=== PATIENT | female | born 1970 | race Caucasian/White ===

== ENCOUNTER 2019-09-06 09:10 | Outpatient (CLI) | payer BC, SELFPAY ==
--- NOTE | ~2019-09-06 | MM_ITS ---
EXAMINATION: MM screening [facility] BI w jan HISTORY: Screening mammogram TECHNIQUE: Craniocaudal and mediolateral oblique 3-D tomosynthesis images were obtained and synthetic 2-D images were generated. CAD analysis was submitted and interpreted. COMPARISON: 09/03/2018, 08/31/2017, 03/30/2016 BREAST PARENCHYMAL COMPOSITION: The breasts are extremely dense, which lowers the sensitivity of mamm ography. FINDINGS: There is no evidence of suspicious mass, calcification, or architectural distortion to sugg est malignancy in either breast. There has been no suspicious interval change. IMPRESSION: 1. No mammographic evidence of malignancy. 2. Recommend routine screening mammography in one year. BI-RADS Category 1: Negative Reviewed, dictated and finalized at location A.
== END 2019-09-06 09:11 | disposition home or self-care (01) ==
LOC: ANHIMG 09:12
PROVIDERS: PCP Family Medicine; Visit Provider Obstetrics & Gynecology
DX: Z12.31 Encounter for screening mammogram for malignant neoplasm of breast (principal)
CPT/HCPCS: 77063; 77067

== ENCOUNTER 2020-10-01 07:26 | Outpatient (CLI) | payer BC, SELFPAY ==
--- NOTE | ~2020-10-01 | MM_ITS ---
EXAMINATION: MM screening [facility] BI w jan HISTORY: Screening TECHNIQUE: Craniocaudal and mediolateral oblique 3-D tomosynthesis images were obtained and synthetic 2-D images were generated. CAD analysis was submitted and interpreted. COMPARISON: Comparison to multiple prior studies sequentially, with oldest reviewed study dated 11/27. BREAST PARENCHYMAL COMPOSITION: The breasts are extremely dense, which lowers the sensitivity of mamm ography FINDINGS: There is no evidence of suspicious mass, calcification, or architectural distortion to sugg est malignancy in either breast. There has been no suspicious interval change. IMPRESSION: 1. No mammographic evidence of malignancy. 2. Recommend routine screening mammography in one year. BI-RADS Category 1: Negative Reviewed, dictated and finalized at location A.
== END 2020-10-01 07:27 | disposition home or self-care (01) ==
LOC: ANHIMG 07:29
PROVIDERS: PCP Family Medicine; Visit Provider Obstetrics & Gynecology
DX: Z12.31 Encounter for screening mammogram for malignant neoplasm of breast (principal)
CPT/HCPCS: 77063; 77067

== ENCOUNTER 2022-03-07 14:47 | Outpatient (CLI) | payer BC, SELFPAY ==
--- NOTE | ~2022-03-07 | MM_ITS ---
EXAMINATION: MM screening [facility] BI w jan HISTORY: Screening mammogram TECHNIQUE: Craniocaudal and mediolateral oblique 3-D tomosynthesis images were obtained and synthetic 2-D images were generated. CAD analysis was submitted and interpreted. COMPARISON: 10/01/2020, 09/06/2019, 09/03/2018 bilateral screening mammogram examinations BREAST PARENCHYMAL COMPOSITION: The breasts are extremely dense, which lowers the sensitivity of mamm ography. FINDINGS: There are occasional benign calcifications of the breasts. There is no evidence of suspicio us mass, calcification, or architectural distortion to suggest malignancy in either breast. There has been no suspicious interval change. IMPRESSION: 1. No mammographic evidence of malignancy. 2. Recommend routine screening mammography in one year. BI-RADS Category 1: Negative Reviewed, dictated and finalized at location A. OR RD ENGINEER
== END 2022-03-07 14:48 | disposition home or self-care (01) ==
LOC: ANHIMG 14:48
PROVIDERS: PCP Family Medicine; Visit Provider Obstetrics & Gynecology
DX: Z12.31 Encounter for screening mammogram for malignant neoplasm of breast (principal)
CPT/HCPCS: 77063; 77067

== ENCOUNTER 2023-07-13 07:28 | Outpatient (CLI) | payer BC, SELFPAY ==
--- NOTE | ~2023-07-13 | MM_ITS ---
EXAMINATION: MM screening [facility] BI w jan HISTORY: Screening mammogram TECHNIQUE: Craniocaudal and mediolateral oblique 3-D tomosynthesis images were obtained and synthetic 2-D images were generated. CAD analysis was submitted and interpreted. COMPARISON: 03/07/2022, 10/01/2020 bilateral screening mammogram examinations BREAST PARENCHYMAL COMPOSITION: The breasts are extremely dense, which lowers the sensitivity of mamm ography. FINDINGS: There is no evidence of suspicious mass, calcification, or architectural distortion to sugg est malignancy in either breast. There has been no suspicious interval change. IMPRESSION: 1. No mammographic evidence of malignancy. 2. Recommend routine screening mammography in one year. BI-RADS Category 1: Negative Reviewed, dictated and finalized at location B.
== END 2023-07-13 07:29 | disposition home or self-care (01) ==
LOC: ANHIMG 07:32
PROVIDERS: PCP Family Medicine; Visit Provider Obstetrics & Gynecology
DX: Z12.31 Encounter for screening mammogram for malignant neoplasm of breast (principal)
CPT/HCPCS: 77063; 77067

== ENCOUNTER 2024-07-25 08:12 | Outpatient (CLI) | payer BC, SELFPAY ==
--- NOTE | ~2024-07-25 | MM_ITS ---
EXAMINATION: MM screening [facility] BI w jan HISTORY: Screening TECHNIQUE: Craniocaudal and mediolateral oblique 3-D tomosynthesis images were obtained and synthetic 2-D images were generated. CAD analysis was submitted and interpreted. COMPARISON: Comparison to multiple prior studies sequentially, with oldest reviewed study dated 06/2017. BREAST PARENCHYMAL COMPOSITION: Dense: The breasts are extremely dense, which lowers the sensitivity of mammography. FINDINGS: There is no evidence of suspicious mass, calcification, or architectural distortion to sugg est malignancy in either breast. There has been no suspicious interval change. IMPRESSION: 1. No mammographic evidence of malignancy. 2. Recommend routine screening mammography in one year. BI-RADS Category 1: Negative Reviewed, dictated and finalized at location A.
--- OUTSIDE RECORDS SUMMARY | 2024-07-25 08:20 | XMS_ITS | Clinical Summary ---
Author Organization [facility] Address [address] [place] [address] Care Team Providers Care Buildings And Grounds Supervisor Name Role Phone Unavailable Primary Care Provider Unavailabl e Social History Tobacco Use Types Packs/Day Years Used Date Smoking Tobacco: Never Assessed Comments Unknown Sex and Gender Information Value Date Recorded Sex Assigned at Not on file Legal Sex Female 7:22 PM TELESALES SPECIALIST Gender Identity Not on file Sexual Orientation Not on file Plan of Treatment Health Maintenance Due Date Last Done Comments Hepatitis C Virus (HCV) Screening 1969 TdaP Immunization 1969 Hepatitis B Immunization (1 of 3 - 19+ 3-dose series) 1988 Pap Smear 1990 Cervical Cancer Screening (CCS) 1999 HPV/Cotest 1999 Colonoscopy 2014 Colorectal Cancer Screening 2014 Cologuard 2019 Immunochemical Fecal Occult Blood 2019 Mammogram 2019 Pneumococcal Immunization (5 0+ years) (1 of 1 - PCV) 2019 Zoster Immunization (1 of 2) 2019 Influenza Immunization (#1) 2023 SARS-COV-2 Immunization (3 - 2023-25 season) 2023 06/23/2020, 05/26/2020 Respiratory Syncytial Virus (RSV) Immunization (Adult) (1 - 1-dose 75+ series) 2044 Meningococcal Immunization (ACWY) Aged Out No longer eligible b ased on patient's age to complete this topic Pneumococcal Immunization Combined Aged Out No longer eligible b ased on patient's age to complete this topic Rotavirus Immunization Aged Out No lo nger eligible based on patient's age to complete this topic
--- OUTSIDE RECORDS SUMMARY | 2024-07-25 08:20 | XMS_ITS ---
Author Organization [facility] ([address]) Address [address] [place] [address] Care Team Providers Care Sexual Assault Nurse Name Role Phone Latonya Hernandes Unavailable [phone] ZZ-Migration, Provider Unavailable Unavailab le REASON FOR VISIT Multum To Medispan Conversion Encounter Medications Medication SIG (Take, Route, Frequency, Duration) Notes Start Date End Date Status Osphena 60 MG 1 tab(s) orally once a day Active buPROPion HCl ER (XL) 300 MG 1 tab(s) orally every 24 hours for 30 day(s) Active Sertraline HCl 50 MG 1 tab(s) orally onc e a day for 30 day(s) Active Encounters Encounter Location Date Provider Diagnosis [address] [address] 08/12/2023 Provider ZZ-Migration Plan Of Treatment No Information Progress Notes * Diamond PRAJAPATI MDOB: 0 (54 yo F)Acc No.[id number]:08/12/2023 Patient: Jose Diamond AVILES Provider: Quita Posey :1970 A ge:53 Y S ex:Female Date:08/12/2023 Address:[address] [place] [address] Esperanza Perez [id number] Subjective: * Chief Complaints: * 1 . Multum To Medispan Conversion Encounter. * Medical History: * Medications: T aking Osphena 60 MG Tablet 1 tab(s) orally once a day , Taking buPROPion HCl ER (XL) 300 MG Tablet Extended Release 24 Hour 1 tab(s) orally every 24 hours , Taking Sertraline HCl 50 MG Tablet 1 tab(s) orally once a day Objective: * Vitals: Assessment: Plan: * Treatment: * Billing Information: * Visit Code: * Procedure Codes: * Electronic signature of Riley HARE-Migration on 07/25/2024 at 08:20 AM CDT Sign off status: Pending * Provider: Quita cordero Migration Date: 08/12/2023 Generated for Saran griffin/Renetta/Dianne on: 07/25/2024 08:20 AM CDT
--- OUTSIDE RECORDS SUMMARY | 2024-07-25 08:20 | XMS_ITS | Clinical Summary ---
Author Organization [facility] Address [address] [place] [address] Care Team Providers Care Hand Former Name Role Phone Daiana Roth MD Primary Care Provider Source Comments [facility],non-[facility] Affiliates and Associated Physician Practices is amultiple site organization consisting of ambulatory clinics and hospital sitesin [place], [place], [place] and [place]. This disclosure is being madepursuant to the [facility] Everywhere program and may not contain all information available regarding this patient. Last updated 17.[facility] [employer] Social History Tobacco Use Types Packs/Day Years Used Date Smoking Tobacco: Never Assessed Comments Unknown Sex and Gender Information Value Date Recorded Sex Assigned at Not on file Legal Sex Female 9:30 AM CDT Gender Identity Not on file Sexual Orientation Not on file Plan of Treatment Health Maintenance Due Date Last Done Comments COLOGUARD (AGES 45-75) - COL ON CA SCREENING 1969 COLON MONITORING 1969 COLONOSCOPY - COLON CA SCREENING 1969 CT COLONOGRAPHY - COLON CA SCREENING 1969 Colorectal Cancer Screening 1969 FIT - COLON CA SCREENING 1969 FLEX SIG - COLON CA SCREENING 1969 LIPID TESTING 1969 MAMMOGRAM 1969 HIV SCREENING 1984 HEPATITIS C SCREENING 03/23/1987 DTAP/TDAP/TD VACCINES (1 - Tdap) 1988 HEPATITIS B VACCINE (1 of 3 - 19+ 3-dose series) 1988 PNEUMOCOCCAL VACCINE 50+ (1 of 1 - PCV) 2019 ZOSTER VACCINE (1 of 2) 2019 COVID-19 VACCINE (1 - 2023-2 5 season) 2023 DEPRESSION SCREENING 02/28/2024 INFLUENZA VACCINE (Season Ended) 2024 HIB VACCINE Aged Out No longer eligi ble based on patient's age to complete this topic HPV VACCINE Aged Out No longer eligi ble based on patient's age to complete this topic MENINGOCOCCAL (Group B) VACC INE SHARED DECISION-MAKING Aged Out No longer eligibl e based on patient's age to complete this topic MENINGOCOCCAL GROUPS A/C/Y/W VACCINE Aged Out No longer eligible b ased on patient's age to complete this topic Insurance Personally Care Teams Hand Former Relationship Specialty Start Date End Date Daiana Roth MD [address] [place] [id number] PCP - General Family Medicine 01/26/15
--- OUTSIDE RECORDS SUMMARY | 2024-07-25 08:21 | XMS_ITS | Patient Health Record ---
Author Organization [facility] [employer] [facility] [employer] [place] ([address]) Address [address] [place] [address] Care Team Providers Care Solid Waste Engineer Name Role Phone Latonya Hernandes Unavailable [phone] ZZ-Migration, Provider Unavailable Unavailab le Allergies No Known Allergies Reason For Referral No Information Medications Medication SIG (Take, Route, Frequency, Duration) Notes Start Date End Date Status OSPHENA 60 mg 1 tab(s) orally once a day Active BUPROPION 300 mg/24 hours 1 tab(s) orall y every 24 hours for 30 day(s) Active Osphena 60 MG 1 tab(s) orally once a day Active buPROPion HCl ER (XL) 300 MG 1 tab(s) orally every 24 hours for 30 day(s) Active SERTRALINE 50 mg 1 tab(s) orally once a day for 30 day(s) Active Sertraline HCl 50 MG 1 tab(s) orally onc e a day for 30 day(s) Active Social History Tobacco Use: Social History Observation Description Date Details (start date - stop date) Never Smoker NA - NA Smoking Smart Form: Question Answer Notes Are you a: never smoker Problems Problem Type SNOMED Code ICD Code Onset Dates Problem Status W/U Status Risk Notes Problem Chronic allergic conjunctivitis (60206701) Other chronic allergic conjunctivitis (H10.45) Active confirmed Problem Allergic rhinitis (48974389) Other allergic rhinitis (J30.89) Active confirmed Problem Allergic rhiniti s due to animal (cat) (dog) hair and dander (J30.81) Active confirmed Problem Contact dermatitis caused by cosmetics (21968163) Allergic contact dermatitis due to cosmetics (L23.2) Active confirmed Problem Allergic contact dermatitis caused by chemical (8392286076007151 3) Allergic contact dermatitis due to other chemical products (L23.5) Active confirmed Encounters Encounter Location Date Provider Diagnosis [facility] [address] [place] [address] 08/12/2023 Provider ZZ-Migration Plan Of Treatment No Information Insurance Providers Payer Name Payer Address Payer Phone Subscriber Number Group Number Insured Name Patient Relationship to Insured Coverage Start Date Coverage End Date [facility] [address] [place] [address] [id number] Armando Gould Spouse - patient is the spouse of the insured Medical (General) History Medical History History ICD Code anxiety/depression Allergic contact dermatitis due to eleno tics L23.2 Surgical History Surgery Date(Month/Year) Cryosurgery 02/27/1998 10/20/2003 02/02/2007 Bunionectomy 01/27/2011 Bunionectomy 05/29/2011
== END 2024-07-25 08:13 | disposition home or self-care (01) ==
LOC: ANHIMG 08:14
PROVIDERS: PCP Clinical Nurse Specialist; Visit Provider Obstetrics & Gynecology
DX: Z12.31 Encounter for screening mammogram for malignant neoplasm of breast (principal)
CPT/HCPCS: 77063; 77067

== ENCOUNTER 2024-09-05 00:31 | Day surgery (SDC) | payer BC, SELFPAY ==
[2024-08-15 08:42] VITALS: BMI 22.6
--- OUTSIDE RECORDS SUMMARY | 2024-09-05 00:34 | XMS_ITS ---
Author Organization [facility] [facility] [employer] [place] ([address]) Address [address] [place] [address] Care Team Providers Care Mobile Paint Specialist Name Role Phone Latonya Hernandes Unavailable [phone] ZZ-Migration, Provider Unavailable Unavailab le REASON FOR VISIT Multum To Medispan Conversion Encounter Medications Medication SIG (Take, Route, Frequency, Duration) Notes Start Date End Date Status Osphena 60 MG 1 tab(s) orally once a day Active buPROPion HCl ER (XL) 300 MG 1 tab(s) orally every 24 hours; Duration: 30 day(s) Activ e Sertraline HCl 50 MG 1 tab(s) orally onc e a day; Duration: 30 day(s) Active Encounters Encounter Location Date Provider Diagnosis [address] [address] 08/12/2023 Provider ZZ-Migration Plan Of Treatment No Information Progress Notes * Diamond PRAJAPATI MDOB: 0 (54 yo F)Acc No.[id number]:08/12/2023 Patient: Jose Diamond AVILES Provider: Quita Posey :1970 A ge:53 Y S ex:Female Date:08/12/2023 Address:[address] [place] [address] Esperanza Perez [id number] Subjective: * Chief Complaints: * 1 . [...] * Electronic signature of Riley HARE-Migration on 09/05/2024 at 12:34 AM CDT Sign off status: Pending * Provider: Quita cordero Migration Date: 08/12/2023 Generated for Saran griffin/Renetta/Dianne on: 09/05/2024 12:34 AM CDT
--- OUTSIDE RECORDS SUMMARY | 2024-09-05 00:34 | XMS_ITS | Clinical Summary ---
Author Organization [facility] Address [address] [place] [address] Care Team Providers Care Internal Audit Consultant Name Role Phone Non-Staff, Provider Primary Care Provider Dell hernandez Social History Tobacco Use Types Packs/Day Years Used Date Smoking Tobacco: Never Assessed Comments Unknown Sex and Gender Information Value Date Recorded Sex Assigned at Not on file Legal Sex Female 9:35 AM COBBLER UPPER Gender Identity Not on file Sexual Orientation Not on file Plan of Treatment Health Maintenance Due Date Last Done Comments Cervical Cancer Screening Pap Smear (Age 30 to 64) Every 3 Years 1969 Colorectal Cancer Screening Colonoscopy (10 Years) 1969 Annual Physical 1972 Hepatitis C 1987 DTaP, Tdap and Td Vaccines (1 - Tdap) 1988 Hepatitis B Vaccines (1 of 3 - 19+ 3-dose series) 1988 Cervical Cancer Screening Pap with HPV Testing (Age 30 to 64) Every 5 Years 1999 Cervical Cancer Screening with HPV 1999 Mammogram Screening 2009 Pneumococcal Vaccine: 50+ Years (1 of 1 - PCV) 2019 Zoster Vaccines (2 of 2) 04/21/2023 02/24/2023 COVID-19 Vaccine (2023- season) 2023 02/04/2023, 04/09/2022, 03/22/2021, Additional history exists Meningococcal B Vaccine Aged Out No l onger eligible based on patient's age to complete this topic Meningococcal Vaccine Aged Out No boston jose rafael eligible based on patient's age to complete this topic RSV Immunizations Under 20 Months Aged Out No longer eligible based on patient's age to complete this topic Insurance Care Teams Internal Audit Consultant Relationship Specialty Start Date End Date Non-Staff, Provider PCP - General UNKNOWN PHYSICIAN SPECIALTY 03/29/23
--- OUTSIDE RECORDS SUMMARY | 2024-09-05 00:34 | XMS_ITS | Clinical Summary ---
Author Organization [facility] Address [address] [place] [address] Care Team Providers Care Windows Desktop Engineer Name Role Phone Daiana Roth MD Primary Care Provider Source Comments [facility] Affiliates and Associated Physician Practices is amultiple site organization consisting of ambulatory clinics and hospital sitesin [place], [place], [place] and [place]. This disclosure is being madepursuant to the [facility] Everywhere program and may not contain all information available regarding this patient. Last updated 17.[facility] [employer] Social History Tobacco Use Types Packs/Day Years [...] patient's age to complete this topic Insurance Now In Store Care Teams Windows Desktop Engineer Relationship Specialty Start Date End Date Daiana Roth MD [address] [place] [id number] PCP - General Family Medicine 01/26/15
--- OUTSIDE RECORDS SUMMARY | 2024-09-05 00:34 | XMS_ITS | Clinical Summary ---
Author Organization [facility] Address [address] [place] [address] Care Team Providers Care Air Tool Operator Name Role Phone Unavailable Primary Care Provider Unavailabl e Social History Tobacco Use Types Packs/Day Years Used Date Smoking Tobacco: Never Assessed Comments Unknown Sex and Gender Information Value Date Recorded Sex Assigned at Not on file Legal Sex Female 7:22 PM CENTER HOLE REAMER Gender Identity Not on file Sexual Orientation [...]
--- OUTSIDE RECORDS SUMMARY | 2024-09-05 00:35 | XMS_ITS | Patient Health Record ---
Author Organization [facility] [employer] [facility] [employer] [place] ([address]) Address [address] [place] [address] Care Team Providers Care Suction Plate Roller Hand Name Role Phone Latonya Hernandes Unavailable [phone] Allergies No Known Allergies Reason For Referral No Information Medications Medication SIG (Take, Route, Frequency, Duration) Notes Start Date End Date Status OSPHENA 60 mg 1 tab(s) orally once a day Active BUPROPION 300 mg/24 hours 1 tab(s) orall y every 24 hours; Duration: 30 day(s) Activ e Osphena 60 MG 1 tab(s) orally once a day Active buPROPion HCl ER (XL) 300 MG 1 tab(s) orally every 24 hours; Duration: 30 day(s) Activ e SERTRALINE 50 mg 1 tab(s) orally once a day; Duration: 30 day(s) Active Sertraline HCl 50 MG 1 tab(s) orally onc e a day; Duration: 30 day(s) Active Social History Tobacco Use: Social History Observation Description Date Details (start date - stop date) Never Smoker NA - NA Smoking Smart Form: Question Answer Notes Are you a: never smoker Problems Problem Type SNOMED Code ICD Code Onset Dates Problem Status W/U Status Risk Notes Problem Chronic allergic conjunctivitis (96067154) Other chronic allergic conjunctivitis (H10.45) Active confirmed Problem Allergic rhinitis (11690308) Other allergic rhinitis (J30.89) Active confirmed Problem Allergic rhinitis caused by animal hair and dander (173005412375038) Allergic rhinitis due to animal (cat) (dog) hair and dander (J30.81) Active confirmed Problem Contact dermatitis caused by cosmetics (58731587) Allergic contact dermatitis due to cosmetics (L23.2) Active confirmed Problem Allergic contact dermatitis caused by chemical (3268149611574124 3) Allergic contact dermatitis due to other chemical products (L23.5) Active confirmed Plan Of Treatment No Information Insurance Providers Payer Name Payer Address Payer Phone Subscriber Number Group Number Insured Name Patient Relationship to Insured Coverage Start Date Coverage End Date [facility] [address] [place] [address] [id number] Armando Gould Spouse - patient is the spouse of the insured Medical (General) History Medical History History ICD Code anxiety/depression Allergic contact dermatitis due to eleno tics L23.2 Surgical History Surgery Date(Month/Year) Cryosurgery 02/27/1998 10/20/2003 02/02/2007 Bunionectomy 01/27/2011 Bunionectomy 05/29/2011
[2024-09-05 08:35] VITALS: BP 122/62; PULSE 78; RESP 20; TEMP 36.1; O2SAT 99; BMI 21.4
[2024-09-05] MEDS: LACTATED RINGERS 1,000 ML 150 ML IV CONT (08:55)
--- NOTE | 2024-09-05 09:21 | P.PNAN_ITS ---
Anes - Initial Pre Proc Eval Procedure: Operation Date: 09/05/24 10:00 Proposed Procedures p Screening Colonoscopy - Raul Naidu MD Date/Time: 09/05/24 09:21 Surgeon: Raul Naidu MD Pre Op Diagnosis: screening Patient Data Age: 54 Gender: F Height: 1.55 m Weight: 51.4 kg Last Vital Signs Temp 97 F L 09/05/24 08:35 Pulse 78 09/05/24 08:35 Resp 20 09/05/24 08:35 BP 122/62 09/05/24 08:35 Pulse Ox 99 09/05/24 08:35 O2 Del Method Room Air 09/05/24 08:35 Allergies Allergy/AdvReac Type Severity Reaction Status Date / Time No Known Allergies Allergy Verified 09/05/24 08:54 Home Medications ?Medication ?Instructions ?Recorded ?Confirmed ?Type sertraline 50 mg tablet 50 mg PO DAILY 02/04/19 09/05/24 History prasterone (DHEA) 6.5 mg vaginal 6.5 mg vaginal DAILY 07/12/24 09/05/24 History insert (Intrarosa) bupropion HCl 300 mg 24 hr tablet, 300 mg PO QAM #90 tabs 08/07/24 09/05/24 Rx extended release Patient hx anesthesia problems: none Family hx anesthesia problems: none Results Review: All pre-operative results and documents have been reviewed as part of the pre- operative evaluation. [facility] Past Medical History Medical History Headache, migraine Anxiety Allergies Normal colonoscopy (~2015) Surgical History Surgical History History of bunionectomy History of 2 sections History of cryosurgery Family History Family History Father Hypertension Malignant neoplasm of prostate COPD (chronic obstructive pulmonary disease) Grandparent Diabetes mellitus Glaucoma Grandparent Ovarian cancer Grandparent COPD (chronic obstructive pulmonary disease) Cerebrovascular accident Grandparent COPD (chronic obstructive pulmonary disease) Cerebrovascular accident Sibling Depression Mother Stomach cancer Social History Social History Social History: Caffeine: Coffee & tea daily Smoking status: Never smoker Second hand tobacco smoke exposure: Yes Additional smoking assessment comments: second hand smoke as a child Alcohol intake: current Alcohol use details: 1-4 days a week Substance use: never Substance use type: does not use Do You Feel Safe in your Home?: Yes Lack of Transportation: No Lack of Food: Never True Current Housing: I Have Housing Concerned About Future Housing: No Difficulty Paying Gas/Electric Bills: No Difficulty Paying for Meds: No Currently Unemployed: No Living arrangements: with family Occupation/Education: occupation Gender identity (if verbalized by the patient): Female Sexual Orientation (if Verbalized by the Patient): Straight or Heterosexual Spiritual care concerns: No Agree to blood products: Yes Anes - Eval Final PreProcedure Day of Procedure 09/05/24 09:21 Patient weight: normal Lungs: normal air movement Airway: Mallampati scale class II Neurological: alert and oriented Last oral intake: >/= 8 hours ASA classification: II Emergent: no Anesthetic plan: proceed Anesthesia type and monitoring: general GIVS and standard monitoring Results Review: All pre-operative results and documents have been reviewed as part of the pre- operative evaluation. Anxiety, migranes. Informed Consent: The patient's anesthetic plan and its attendant risks and benefits were discussed with the patient/family/POA. Questions were solicited and answers provided to the satisfaction of the patient/family/POA.
--- NOTE | 2024-09-05 09:22 | PM.IMHP ---
H&P: HPI History of Present Illness Date/Time: 09/05/24 09:22 Chief Complaint: screening colonoscopy Narrative: This is the patient's first colonoscopy. There are no GI symptoms and there is no family history of colorectal cancer. Review of Systems Review of Systems: All systems reviewed & are unremarkable except as noted in HPI and below PMFSH Past Medical History Medical History Headache, migraine Anxiety Allergies Normal colonoscopy (~2015) Surgical History Surgical History History of bunionectomy History of 2 sections History of cryosurgery Family History Family History Father Hypertension Malignant neoplasm of prostate COPD (chronic obstructive pulmonary disease) Grandparent Diabetes mellitus Glaucoma Grandparent Ovarian cancer Grandparent COPD (chronic obstructive pulmonary disease) Cerebrovascular accident Grandparent COPD (chronic obstructive pulmonary disease) Cerebrovascular accident Sibling Depression Mother Stomach cancer Social History Social History Social History: Caffeine: Coffee & tea daily Smoking status: Never smoker Second hand tobacco smoke exposure: Yes Additional smoking assessment comments: second hand smoke as a child Alcohol intake: current Alcohol use details: 1-4 days a week Substance use: never Substance use type: does not use Do You Feel Safe in your Home?: Yes Lack of Transportation: No Lack of Food: Never True Current Housing: I Have Housing Concerned About Future Housing: No Difficulty Paying Gas/Electric Bills: No Difficulty Paying for Meds: No Currently Unemployed: No Living arrangements: with family Occupation/Education: occupation Gender identity (if verbalized by the patient): Female Sexual Orientation (if Verbalized by the Patient): Straight or Heterosexual Spiritual care concerns: No Agree to blood products: Yes Meds Home Medications and Allergies Home Medications ?Medication ?Instructions ?Recorded ?Confirmed ?Type sertraline 50 mg tablet 50 mg PO DAILY 02/04/19 09/05/24 History prasterone (DHEA) 6.5 mg vaginal 6.5 mg vaginal DAILY 07/12/24 09/05/24 History insert (Intrarosa) bupropion HCl 300 mg 24 hr tablet, 300 mg PO QAM #90 tabs 08/07/24 09/05/24 Rx extended release Allergies Allergy/AdvReac Type Severity Reaction Status Date / Time No Known Allergies Allergy Verified 09/05/24 08:54 Vital Signs Vital Signs - 24 hr 09/05/24 08:35 Temperature 97 F L Pulse Rate 78 Respiratory Rate 20 Blood Pressure 122/62 Pulse Oximetry 99 Oxygen Delivery Room Air Exam Const: General: cooperative and healthy appearing Resp: Effort & Inspection: normal respiratory effort and able to speak in complete sentences Auscultation: clear to auscultation bilaterally Cardio: Rate: regular rate Rhythm: regular rhythm GI: Inspection: normal to inspection GI Palp: No No hepatosplenomegaly present Auscultation: normal bowel sounds Rectal Exam: deferred Skin: General skin exam: normal color Psych: Appearance: grossly normal Mental Status: mental status grossly normal Assessment and Plan Assessment and plan (1) Screening for colon cancer: Code(s): Z12.11 - Encounter for screening for malignant neoplasm of colon Status: Acute Assessment and Plan: The patient is deemed a good candidate for the procedure. Consent signed. Will proceed.
[2024-09-05 09:45] LABS: BEDSIDEPREGUCG Negative (Negative)
[2024-09-05] MEDS: SIMETHICONE ORAL SUSPENSION 20 MG/0.3 ML 30 ML BOTTLE 0.6 ML IRRIGATION (10:30)
[2024-09-05 10:41] VITALS: BP 94/53; PULSE 69; RESP 17; O2SAT 98
[2024-09-05 10:51] VITALS: BP 105/58; PULSE 61; RESP 15; O2SAT 100
[2024-09-05 11:01] VITALS: BP 101/70; PULSE 62; RESP 19; O2SAT 99
== END 2024-09-05 11:11 | disposition home or self-care (01) ==
PROVIDERS: Anesthesiology; PCP Clinical Nurse Specialist; Referring Provider Clinical Nurse Specialist; Visit Provider Internal Medicine Gastroenterology
PROC: 0DJD8ZZ Inspection of Lower Intestinal Tract, Via Natural or Artificial Opening Endoscopic (ICD-10-PCS; CPT 45378; principal; 2024-09-05 10:00)
DX: Z12.11 Encounter for screening for malignant neoplasm of colon (principal); F41.9 Anxiety disorder, unspecified; Z98.890 Other specified postprocedural states; Z80.42 Family history of malignant neoplasm of prostate; Z80.41 Family history of malignant neoplasm of ovary; Z80.0 Family history of malignant neoplasm of digestive organs
CPT/HCPCS: 45378; J2003; J2704; J7120